=== PATIENT | male | born 1985 | race Caucasian/White ===

== ENCOUNTER 2024-04-15 03:51 | Emergency (ER) | payer MEDICARE, MEDICAID ==
[~2024-04-15] VITALS: Ht 182.9 cm; Wt 134.8 kg
[~2024-04-15 03:51] MED LIST: IBUP-1051 PO
[2024-04-15 04:55] LABS: BASOPHILS % (AUTO) 0.4 % (0-1); EOSINOPHILS # (AUTO) 0.2 X10'3 (0-0.9); EOSINOPHILS % (AUTO) 2.5 % (0-6); HEMATOCRIT 40.9 % (42.0-52.0); HEMOGLOBIN 13.9 g/dl (14.0-17.9); LYMPHOCYTES # (AUTO) 2.7 X10'3 (1.1-4.8); LYMPHOCYTES % (AUTO) 31.6 % (21-51); MEAN CORPUSCULAR HEMOGLOBIN 32.3 PG (27.0-31.0); MEAN CORPUSCULAR VOLUME 94.8 FL (78-98); MEAN PLATELET VOLUME 7.6 FL (7.4-10.4); MONOCYTES # (AUTO) 0.6 X10'3 (0-0.9); MONOCYTES % (AUTO) 7.5 % (2-12); PLATELET COUNT 353 X10'3 (140-440); RED BLOOD COUNT 4.31 X10'6 (4.70-6.10); RED CELL DISTRIBUTION WIDTH 13.7 % (11.5-14.5); WHITE BLOOD COUNT 8.6 X10'3 (4.5-11.0)
[2024-04-15 05:20] LABS: ALANINE AMINOTRANSFERASE 83 U/L (12-78); ALBUMIN 3.3 G/DL (3.4-5.0); ALBUMIN/GLOBULIN RATIO 0.9 (1.1-1.5); ALKALINE PHOSPHATASE 87 IU/L (46-116); ANION GAP 8 (8-16); ASPARTATE AMINO TRANSFERASE 37 U/L (10-37); BILIRUBIN,TOTAL 0.2 MG/DL (0.1-1.0); BLOOD UREA NITROGEN 7 MG/DL (7-18); BUN/CREATININE RATIO 5.8 (10.0-20.0); CALCIUM 8.4 MG/DL (8.5-10.1); CHLORIDE 107 MMOL/L (99-107); GLUCOSE 115 MG/DL (70-104); POTASSIUM 3.8 MMOL/L (3.5-5.1); SODIUM 143 MMOL/L (135-145); TOTAL CARBON DIOXIDE 28.5 MMOL/L (24-32); TOTAL PROTEIN 6.9 G/DL (6.4-8.2); eCRCL 93 ML/MIN; eGFR 69 ML/MIN
[2024-04-15 05:26] LABS: PRO BRAIN NATRIURETIC PEPTIDE 33 PG/ML (0-125)
[2024-04-15] MEDS: acetaminophen 325mg tablet PO ONE (08:56)
[2024-04-15 09:07] LABS: D-DIMER 1.82 MG/L FEU (0-0.50)
[2024-04-15 10:03] VITALS: BP 115/74; PULSE 74; RESP 16; TEMP 98.1; O2SAT 99
== END 2024-04-15 10:04 | disposition home or self-care (01) ==
LOC: ER 03:52
DX: R07.89 Other chest pain (principal); F20.9 Schizophrenia, unspecified; G47.30 Sleep apnea, unspecified; Z88.8 Allergy status to other drugs, medicaments and biological substances; F15.90 Other stimulant use, unspecified, uncomplicated; F17.210 Nicotine dependence, cigarettes, uncomplicated
CPT/HCPCS: 36415; 71045; 80053; 83880; 84484; 85025; 85379; 93005; 93971; 99285